=== PATIENT | female | born 1975 | race Caucasian/White ===

== ENCOUNTER 2019-12-19 12:14 | Day surgery (SDC) | payer OTHER ==
[~2019-12-19] VITALS: Ht 170.2 cm; Wt 57.8 kg
[2019-12-19] MEDS ORDERED: CENTRUM SILVER1 EAC2 (12:41)
[2019-12-19] MEDS ORDERED: OSTERA TABLET1 EACH (12:42)
[2019-12-19] MEDS ORDERED: DIGESTIVE ENZY220 MG (12:42)
[2019-12-19] MEDS ORDERED: ALLEGRA ALLERG180 MG (12:42)
[2019-12-19] MEDS ORDERED: SELE1.25 (12:43)
[2019-12-19] MEDS ORDERED: MAGCHL64ER (12:43)
== END 2019-12-19 14:21 | disposition home or self-care (01) ==
LOC: ORSCSDS 12:14
PROVIDERS: Internal Medicine Gastroenterology
PROC: 0DJD8ZZ Inspection of Lower Intestinal Tract, Via Natural or Artificial Opening Endoscopic (ICD-10-PCS; principal; 2019-12-19 13:30)
DX: Z83.71 Family history of colonic polyps (principal)
CPT/HCPCS: J2704; J7120